=== PATIENT | male | born 1950 | race Caucasian/White ===

== ENCOUNTER 2016-03-18 11:19 | Observation (INO) | payer BC, OTHER ==
[2016-03-18 11:43] VITALS: BMI 33.6
[2016-03-18] MEDS ORDERED: SODIUM CHLORIDE 1,000 ML IV STA (12:30)
--- NOTE | 2016-03-18 12:51 | PDOC ---
History of Present Illness - General History Source: Patient - History of Present Illness Timing/Duration: other (this am) Associated Symptoms: reports: weakness. denies: chest pain, cough, diaphoresis , fever/chills, headaches, nausea/vomiting, seizure, shortness of breath <Blanche DormanNikko - Last Filed: 03/18/16 16:58> <Clarence Calixto - Last Filed: 03/19/16 09:41> - General Chief Complaint: Weakness Stated Complaint: GENERALIZED WEAKNESS Time Seen by Provider: 03/18/16 11:42 Past History - Past Medical History Anemia: No Asthma: Yes Cancer: No Cardiac Disorders: Yes (BLOCKED ARTERY) CVA: No COPD: No CHF: No Dementia: No Diabetes: Yes (NIDDM) GI Disorders: Yes (H/O COLON POLYP) Disorders: No HTN: Yes Hypercholesterolemia: Yes Liver Disease: No Psychiatric Problems: Yes (ANXIETY) Seizures: No Thyroid Disease: No - Surgical History Abdominal Surgery: No Appendectomy: No Cardiac Surgery: No (CARDIAC CATH.-[facility]) Cholecystectomy: No Lung Surgery: No Neurologic Surgery: No Orthopedic Surgery: Yes (LEFT ANKLE-SCRAPING OF TALUS BONE) - Psycho/Social/Smoking Cessation Hx Anxiety: Yes Suicidal Ideation: No Smoking History: Never smoked Have you smoked in the past 12 months: No Hx Alcohol Use: No Substance Use Type: None Hx Substance Use Treatment: No <Quincy Dorman - Last Filed: 03/18/16 16:58> <Clarence Calixto - Last Filed: 03/19/16 09:41> - Past Medical History Allergies/Adverse Reactions: Allergies Allergy/AdvReac Type Severity Reaction Status Date / Time iodine AdvReac Intermediate hives, Verified 03/18/16 11:41 itchy, swelling Home Medications: Ambulatory Orders Allopurinol [Zyloprim -] 300 mg PO DAILY 06/11/13 Aspirin Coated [Ecotrin -] 81 mg PO DAILY 06/11/13 Hydrochlorothiazide [Hctz -] 25 mg PO DAILY 06/11/13 Pregabalin [Lyrica] 200 mg PO BID 06/11/13 Ramipril [Altace] 10 mg PO DAILY 06/11/13 Albiglutide [Tanzeum] 30 mg SCJ WEEKLY 03/18/16 Aripiprazole [Abilify -] 2 mg PO DAILY 03/18/16 Celecoxib [Celebrex] 200 mg PO BID 03/18/16 Clonazepam 2 mg PO HS 03/18/16 Colesevelam HCl [Welchol (Nf)] 3 tab PO BID 03/18/16 Fenofibrate [Lofibra] 160 mg PO DAILY 03/18/16 Tamsulosin HCl 0.4 mg PO HS 03/18/16 Venlafaxine HCl ER [Effexor Xr -] 225 mg PO DAILY 03/18/16 Review of Systems - Review of Systems Constitutional: Yes: Weakness. No: Chills, Fever Respiratory: No: Cough, Shortness of Breath Cardiac (ROS): No: Chest Pain ABD/GI: No: Constipated, Diarrhea, Nausea, Vomiting Neurological: No: Headache, Dizziness <Quincy Dorman - Last Filed: 03/18/16 16:58> *Physical Exam - Vital Signs Last Vital Signs Temp Pulse Resp BP Pulse Ox 97.9 F 79 18 109/51 96 03/18/16 11:34 03/18/16 11:34 03/18/16 11:34 03/18/16 11:34 03/18/16 11:34 - Physical Exam General Appearance: Yes: Appropriately Dressed, Other (pt appears lethargic) HEENT: positive: Normal Voice Neck: positive: Supple Respiratory/Chest: positive: Lungs Clear, Normal Breath Sounds. negative: Respiratory Distress Cardiovascular: positive: Regular Rate, S1, S2 Gastrointestinal/Abdominal: positive: Soft. negative: Tender Extremity: positive: Normal Inspection Integumentary: positive: Dry, Warm Neurologic: positive: Fully Oriented, Normal Mood/Affect, Other (oriented x 3 and non-focal) <Quincy Dorman - Last Filed: 03/18/16 16:58> - Vital Signs Last Vital Signs Temp Pulse Resp BP Pulse Ox 97.7 F 65 20 114/54 96 03/19/16 05:57 03/19/16 05:57 03/19/16 05:57 03/19/16 05:57 03/19/16 05:00 <Clarence Calixto - Last Filed: 03/19/16 09:41> ED Treatment Course - LABORATORY CBC & Chemistry Diagram: 03/18/16 12:55 03/18/16 12:55 - RADIOLOGY Radiology Studies Ordered: Category Date Time Status HEAD CT WITHOUT CONTRAST [CT] Stat CT Scan 03/18/16 12:31 Ordered <Maricruz DormanCelestino - Last Filed: 03/18/16 16:58> - LABORATORY CBC & Chemistry Diagram: 03/18/16 12:55 03/19/16 06:00 - ADDITIONAL ORDERS Additional order review: 03/18/16 12:55 RBC 4.93 MCV 86.5 MCHC 34.3 RDW 14.5 MPV 8.3 Neutrophils % 70.2 Lymphocytes % 15.8 Monocytes % 9.0 Eosinophils % 4.5 Basophils % 0.5 - Medications Given in the ED: ED Medications Discontinued Medications Generic Name Dose Route Start Last Admin Trade Name Freq PRN Reason Stop Dose Admin Sodium Chloride 1,000 mls @ 1,000 mls/hr 03/18/16 12:30 03/18/16 12:34 Normal Saline - IV 03/18/16 13:29 1,000 mls/hr ASDIR STA Administration <Clarence Calxito - Last Filed: 03/19/16 09:41> Medical Decision Making - Medical Decision Making 03/18/16 12:45 65-year-old male, obesity, REM sleep disorder, anxiety on clonazepam, sent to ED by chiropractor for altered mental status this am. As per chiropractor contacted her to inform her that patient appeared "sluggish" and confused in office today. As per , suspect patients sxs are 2/2 clonazepam. States patient recently had clonazepam increased from 0.5 daily to 1 mg and is to take 2mg at night and 1mg in the days that he goes to work. States though patient is off today from work, pt took either 1 or 2 mg at 4 AM today and suspect meds is causing symptoms. Patient lethargic in ED but able to give hx and denies headache, dizziness, focal weakness, chest pain or shortness of breath. See exam AMS Possible 2/2 benzo, less likely CVA, cardiac, metabolic or infectious -ekg -CT head -labs including utox -possible OBs admission 03/18/16 12:52 03/18/16 16:53 Labs only remarkable for benzo on utox. Pt minimally improved but remains lethargic but protecting airway. Case d/w hospitalist and pt admitted <SyriacQuincy schuster - Last Filed: 03/18/16 16:58> - Medical Decision Making 03/19/16 09:41 The patient was seen and evaluated in conjunction with REJI Hernandez under my direct supervision, ancillary studies were reviewed. I agree with the plan as outlined by REJI Hernandez . <Clarence Calixto - Last Filed: 03/19/16 09:41> *DC/Admit/Observation/Transfer - Discharge Dispostion Admit: Yes <Quincy Dorman - Last Filed: 03/18/16 16:58> <Clarence Calixto - Last Filed: 03/19/16 09:41> Diagnosis at time of Disposition: Altered mental status Qualifiers: Altered mental status type: unspecified Qualified Code(s): R41.82 - Altered mental status, unspecified - Discharge Dispostion Condition at time of disposition: Stable - Referrals
[2016-03-18 13:04] LABS: BASOPHIL 0.5 % (0-2.0); EOSINOPHIL 4.5 % (0-4.5); MCH 29.6 pg (25.7-33.7); MCHC 34.3 g/dl (32.0-35.9); MEAN CELL VOLUME 86.5 fl (80-96); MEAN PLT VOLUME 8.3 fl (7.5-11.1); NEUTROPHILS 70.2 % (42.8-82.8); PLATELET COUNT 218 K/MM3 (134-434); RDW 14.5 % (11.9-15.9); WHITE BLOOD COUNT 7.4 K/mm3 (4.0-10.0)
[2016-03-18 13:41] LABS: ALBUMIN 3.6 g/dl (3.4-5.0); ANION GAP 10 (8-16); BILIRUBIN,TOTAL 0.2 mg/dL (0.2-1.0); CALCIUM 9.8 mg/dL (8.5-10.1); CO2 30 mmol/L (21-32); GLUCOSE,RANDOM 115 mg/dL (74-106); SGPT/ALT 34 U/L (12-78)
[2016-03-18 13:44] LABS: ALK PHOS 76 U/L (45-117); TOT PROT 6.4 g/dl (6.4-8.2); TROPONIN I < 0.02 ng/ml (0.00-0.05)
[2016-03-18 13:45] LABS: SGOT/AST 20 U/L (15-37)
[2016-03-18 15:03] LABS: URINE APPEARANCE CLEAR; URINE BILIRUBIN NEGATIVE (NEGATIVE); URINE BLOOD NEGATIVE (NEGATIVE); URINE COLOR LTYELLOW; URINE GLUCOSE (UA) NEGATIVE (NEGATIVE); URINE KETONE NEGATIVE (NEGATIVE); URINE LEUK ESTERASE NEGATIVE (NEGATIVE); URINE NITRITE NEGATIVE (NEGATIVE); URINE PROTEIN NEGATIVE (NEGATIVE); URINE UROBILINOGEN NEGATIVE E.U./dl (0.2-1.0)
[2016-03-18 15:32] LABS: URINE MARIJUANA THC NEGATIVE ng/ml (CUTOFF=50)
--- NOTE | 2016-03-18 16:15 | EKG ---
Test Reason : Blood Pressure : / mmHG Vent. Rate : 070 BPM Atrial Rate : 070 BPM P-R Int : 226 ms QRS Dur : 086 ms QT Int : 388 ms P-R-T Axes : 030 019 053 degrees QTc Int : 419 ms SINUS RHYTHM WITH 1ST DEGREE A-V BLOCK LOW VOLTAGE QRS NONSPECIFIC ST AND T WAVE ABNORMALITY ABNORMAL ECG WHEN COMPARED WITH ECG OF 15-APR-2008 16:11, [place] INTERVAL HAS INCREASED NONSPECIFIC T WAVE ABNORMALITY NOW EVIDENT IN ANTEROLATERAL LEADS Confirmed by LEE PALOMINO MD ([id number]) on 03/18/2016 4:15:18 PM Referred By: Confirmed By:LEE PALOMINO MD
--- NOTE | 2016-03-18 18:17 | PN ---
Teaching Attending Note Name of Resident: Laly Syed ATTENDING PHYSICIAN STATEMENT I saw and evaluated the patient. I reviewed the resident's note and discussed the case with the resident. I agree with the resident's findings and plan as documented. SUBJECTIVE: CC: AMS. story obtained form and patient . He has been feeling weak and tired , for 3 days . the only change in his meds was increasing his klonopin to 2 mg from one 3 days ago. ( previously it was 0.5 mg ). He was at his Chiropractor's office this am when he felt that he lost focus and was not able to text his , He was also stumbling , he denied any change in his vision, focal weakness, tingling or numbness . he has ELY o n and off and this am he had some ELY and took lexapro for that. HE is prescribed Lexapro by his neurologist for ELY . For the past 3 days he has been feeling not himself . He denied taking an extra Klonopin this am . reports episode of hypotension this AM at chiropractor ' s office She thinks he is much better now, speech is close to Normal , and he feels he is almost back to NL but tired He denies any fever , chills, LOC , fall, dysuria , diarrhea or ABd pain. OBJECTIVE: NAD , looks fatigued , awake , slightly dry MM . CV: RRR, NO MRG Lungs : CATB ext : trace edema on lower legs NEuro : EOMI, round equal pupils , reactive to light , no facial droop, tongue at mid line , uvula at mid line , nl facial sensation , strength 5/5 in upper and lower ext prox and distally .reflexes 2+ knee jerk and biceps b/l . nL nose to finger . Awake , AAx3 . ASSESSMENT AND PLAN: 65 y/o gentleman with h/o DM , REM sleep disorder , back pain due to herniated disks, insomnia, chronic ELY , who presented to ER from his Chiropractor's office with AMS. 1- AMS , probably due to benzos. , he admits to taking it each night at increased dose . His urine was positive for opioids which he denies taking and neg for Opioids!!!. Patient also has signs of volume depletions which might be contributing to the picture . He already imporved. I do not suspect a stroke or TIA in him. HIs neuro exam is completely NL. He also has no signs of infection . - will hold benzos and monitor mental status - will give him his SSRI to avoid withdrawal sx . - probably tomorrow night he should get low dose benzos , otherwise he will develop withdrawal sx . - start gentle IV hydration - CT scan with no etiology - hold HCTZ - will repeat urine tox as there might be a specimen error 2- h/o DM , will watch his BGM and place on SSI . 3- neuropathy : cont with lyrica 4- h/o CAD , per had cath twice with 30 % stenosis . No stents were indicated . cont ASA 5- ZEYAD: order CPAP at home setting . dispo : possible dc tomorrow if cont to improve .
[2016-03-18] MEDS ORDERED: SODIUM CHLORIDE 1,000 ML IV SCH (18:45)
--- NOTE | 2016-03-18 19:07 | HP ---
CHIEF COMPLAINT: Mental status change PCP: HISTORY OF PRESENT ILLNESS: The pt is a 65 year old male with a PMH of obesity, ZEYAD (on CPAP at home), anxiety, REM sleep disorder, HRT, HDL who presents to the hospital with mental status change. He states that for the past 3 days he feels sluggish, "like he was drunk". He noticed that it worsened yesterday. He went to his chirapractor today in AM who noticed that the pt is confused and called the ambulance. The pt states that 3 days ago his doctor increased Klonapin to 2 mg. The pt's states that she couldn't understand him over the phone yesterday in the evening and today he was not responding to her text messages. The pt denies dizziness, LOC, paresthesias, numbness, weakness, vision changes, chest pain, palpitations. He denies N/V, diarrhea, constipation, dysuria, urgency, frequency. ER course was notable for: (1)CT head (2)EKG (3)U tox PAST MEDICAL HISTORY: As above PAST SURGICAL HISTORY: Left meniscus repair, left ankle repair, deviated septum repair, tonsillectomy Social History: Smoking:No Alcohol:No Drugs:No, but stated that he was opiates dependant Family History: Father: LYMPHOMA, PROSTATE CANCER, COPD Vikas: breast cancer Allergies iodine Adverse Reaction (Intermediate, Verified 03/18/16 11:41) hives, itchy, swelling HOME MEDICATIONS: Medication Instructions Recorded Allopurinol [Zyloprim -] 300 mg PO DAILY 06/11/13 Alprazolam [Xanax] 0.25 mg PO PRN PRN 06/11/13 Aspirin Coated [Ecotrin -] 81 mg PO DAILY 06/11/13 Fluticasone Prop 0.05% Nasal 1 - 2 spray NS DAILY 06/11/13 [Flonase -] Glimepiride [Amaryl] 2 mg PO DAILY 06/11/13 Hydrochlorothiazide [Hctz -] 25 mg PO DAILY 06/11/13 Montelukast Na [Singulair -] 10 mg PO HS 06/11/13 Pregabalin [Lyrica] 200 mg PO DAILY 06/11/13 Ramipril [Altace] 10 mg PO DAILY 06/11/13 Sertraline HCl [Zoloft -] 150 mg PO DAILY 06/11/13 Albiglutide [Tanzeum] 30 mg SCJ WEEKLY 03/18/16 Aripiprazole [Abilify -] 2 mg PO DAILY 03/18/16 Celecoxib [Celebrex] 200 mg PO DAILY 03/18/16 Clonazepam 2 mg PO HS 03/18/16 Clonazepam [Klonopin -] 0.5 mg PO ASDIR 03/18/16 Colesevelam HCl [Welchol (Nf)] 3 tab PO BID 03/18/16 Cyclobenzaprine HCl [Flexeril -] 10 mg PO TID 03/18/16 Fenofibrate [Lofibra] 160 mg PO HS 03/18/16 Multivitamin [Poly-Vitamin] 1 each PO DAILY 03/18/16 Tamsulosin HCl 0.4 mg PO HS 03/18/16 Venlafaxine HCl ER [Effexor Xr -] 75 mg PO HS 03/18/16 REVIEW OF SYSTEMS CONSTITUTIONAL: Absent: fever, chills, diaphoresis, generalized weakness, malaise, loss of appetite, weight change HEENT: Absent: rhinorrhea, nasal congestion, throat pain, throat swelling, difficulty swallowing, mouth swelling, ear pain, eye pain, visual changes CARDIOVASCULAR: Absent: chest pain, syncope, palpitations, irregular heart rate, lightheadedness , peripheral edema RESPIRATORY: Absent: cough, shortness of breath, dyspnea with exertion, orthopnea, wheezing, stridor, hemoptysis GASTROINTESTINAL: Absent: abdominal pain, abdominal distension, nausea, vomiting, diarrhea, constipation, melena, hematochezia GENITOURINARY: Absent: dysuria, frequency, urgency, hesitancy, hematuria, flank pain, genital pain MUSCULOSKELETAL: lower back pain Absent: myalgia, joint swelling, neck pain SKIN: Absent: rash, itching, pallor HEMATOLOGIC/IMMUNOLOGIC: Absent: easy bleeding, easy bruising, lymphadenopathy, frequent infections ENDOCRINE: Absent: unexplained weight gain, unexplained weight loss, heat intolerance, cold intolerance NEUROLOGIC: Absent: headache, focal weakness or paresthesias, dizziness, unsteady gait, seizure, mental status changes, bladder or bowel incontinence PSYCHIATRIC: Absent: anxiety, depression, suicidal or homicidal ideation, hallucinations. PHYSICAL EXAMINATION Vital Signs - 24 hr 03/18/16 03/18/16 17:43 18:07 Temperature 97.8 F Pulse Rate [ 76 Left Radial] Respiratory 16 16 Rate Blood Pressure 113/72 [Right Arm] O2 Sat by Pulse 98 98 Oximetry (%) GENERAL: Awake, alert, and fully oriented, in no acute distress. HEAD: Normal with no signs of trauma. EYES: Pupils equal, round and reactive to light, extraocular movements intact, sclera anicteric, conjunctiva clear. No lid lag. EARS, NOSE, THROAT: Ears normal, nares patent, oropharynx clear without exudates. Moist mucous membranes. NECK: Normal range of motion, supple without lymphadenopathy, JVD, or masses. LUNGS: Breath sounds equal, clear to auscultation bilaterally. No wheezes, and no crackles. No accessory muscle use. HEART: Regular rate and rhythm, normal S1 and S2 without murmur, rub or gallop. ABDOMEN: Obese, soft, nontender, not distended, normoactive bowel sounds, no guarding, no rebound, no masses. No hepatomegaly or splenomegaly. MUSCULOSKELETAL: Normal range of motion at all joints. No bony deformities or tenderness. No CVA tenderness. UPPER EXTREMITIES: 2+ pulses, warm, well-perfused. No cyanosis. No clubbing. Cap refill <2 seconds. No peripheral edema. LOWER EXTREMITIES: 2+ pulses, warm, well-perfused. No calf tenderness. No peripheral edema. NEUROLOGICAL: Cranial nerves II-XII intact. Normal speech. Normal gait. Romberg negative, Sensation intact. Babinski negative B/L. PSYCHIATRIC: Cooperative. Good eye contact. Appropriate mood and affect. SKIN: Warm, dry, normal turgor, no rashes or lesions noted. ASSESSMENT/PLAN: The pt is a 65 year old male with a PMH of obesity, ZEYAD (on CPAP at home), anxiety, RWEM sleep disorder, HRT, HDL who presents to the hospital with mental status change. He states that for the past 3 days he feels sluggish. He states that 3 days ago his doctor increased Klonapin to 2 mg. He is admitted for mental status change. Mental status change: -probably due to medications, benzodiazepines, he was recently increasing his dose and also taking in AM, his U Tox is positive for opioids and barbiturates, will recheck his U tox. if mistake happened. We are r/o cardiac and neuro. he doesn't have any neuro or cardiac complaints. Labs are nl, EKG nl, troponins neg. Ct head nl. -f/u next troponin and EKG -hold BZ today, start tomorrow -continue SSRI -IVF at rate 75 ml/hr -hold HCTZ Pre diabetic; -will watch his BGM -ISS Neuropathy: -continue Lyrica CAD: -continue home meds, had arteriography done in the past ZEYAD; -CPAP at night F/E/N; NS/No changes/Low sodium disposition; placed on observation Medications reconciled. Problem List - Problem (1) Altered mental status Code(s): R41.82 - ALTERED MENTAL STATUS, UNSPECIFIED Qualifiers: Altered mental status type: unspecified Qualified Code(s): R41.82 - Altered mental status, unspecified (2) Lower back pain Code(s): M54.5 - LOW BACK PAIN Visit type - Emergency Visit Emergency Visit: Yes ED Registration Date: 03/18/16 Care time: The patient presented to the Emergency Department on the above date and was hospitalized for further evaluation of their emergent condition. - New Patient This patient is new to me today: Yes Date on this admission: 03/19/16 - Critical Care Critical Care patient: No
[2016-03-18] MEDS ORDERED: PREGABALIN 75 MG CAPSULE ONE (21:31)
[2016-03-18] MEDS ORDERED: PREGABALIN 50 MG CAPSULE ONE (21:31)
[2016-03-18] MEDS ORDERED: PREGABALIN 200 MG PO SCH (22:00)
[2016-03-18] MEDS ORDERED: PREGABALIN 100 MG CAPSULE PO SCH (22:00)
[2016-03-18] MEDS: CELECOXIB 200 MG CAPSULE PO SCH (23:07)
[2016-03-18] MEDS: HEPARIN NA (PORCINE) 5,000 UNITS/ML 1ML VIAL SQ SCH (23:08)
[2016-03-18] MEDS: PREGABALIN 150 MG, PREGABALIN 50 MG PO SCH (23:08)
[2016-03-19] MEDS: HEPARIN NA (PORCINE) 5,000 UNITS/ML 1ML VIAL SQ SCH (06:46)
[2016-03-19 07:54] LABS: CALCIUM 8.6 mg/dL (8.5-10.1)
[2016-03-19] MEDS ORDERED: ASPIRIN COATED 81 MG TABLET.EC PO SCH (10:00)
[2016-03-19] MEDS ORDERED: ALLOPURINOL 300 MG TABLET (FP) PO SCH (10:00)
[2016-03-19] MEDS ORDERED: ARIPiprazole 2 MG TABLET PO SCH (10:00)
[2016-03-19] MEDS ORDERED: RAMIPRIL 5 MG CAPSULE (FP) PO SCH (10:00)
[2016-03-19] MEDS ORDERED: VENLAFAXINE HCL 75 MG E.R. CAPSULES (FP) PO SCH (10:00)
[2016-03-19] MEDS ORDERED: PREGABALIN 50 MG CAPSULE ONE (10:58)
[2016-03-19] MEDS: PREGABALIN 150 MG, PREGABALIN 50 MG PO SCH (11:04)
[2016-03-19] MEDS: CELECOXIB 200 MG CAPSULE PO SCH (11:05)
--- NOTE | 2016-03-19 14:32 | EKG ---
Test Reason : Blood Pressure : / mmHG Vent. Rate : 071 BPM Atrial Rate : 071 BPM P-R Int : 172 ms QRS Dur : 088 ms QT Int : 348 ms P-R-T Axes : 044 033 043 degrees QTc Int : 378 ms NORMAL SINUS RHYTHM LOW VOLTAGE QRS NONSPECIFIC T WAVE ABNORMALITY ABNORMAL ECG WHEN COMPARED WITH ECG OF 18-MAR-2016 12:08, [place] INTERVAL HAS DECREASED INVERTED T WAVES HAVE REPLACED NONSPECIFIC T WAVE ABNORMALITY IN ANTERIOR LEADS Confirmed by GEORGETTE MORLEY, LEE ([id number]) on 03/19/2016 2:32:35 PM Referred By: LUIS PATEL Confirmed By:LEE PALOMINO MD
[2016-03-19 15:55] VITALS: BP 135/83; PULSE 83; TEMP 98
--- NOTE | 2016-03-19 16:39 | DS ---
Physical Examination Vital Signs: Vital Signs Temperature 98 F 03/19/16 10:00 Pulse Rate 83 03/19/16 10:00 Respiratory Rate 20 03/19/16 10:00 Blood Pressure 135/83 03/19/16 10:00 O2 Sat by Pulse Oximetry (%) 96 03/19/16 10:00 Findings/Remarks: this am she has no sx , has no CP or palpitations , or fever or chills. she denies any SOB or abd pain . feels back to his base line . HAs been ambulating of floor with no problem Constitutional: Yes: Well Nourished, No Distress, Calm Eyes: Yes: Conjunctiva Clear, EOM Intact, PERRL. No: Ptosis HENT: Yes: Atraumatic, Normocephalic Neck: Yes: Supple Cardiovascular: Yes: Regular Rate and Rhythm, S1, S2. No: Murmur, Rub Respiratory: Yes: CTA Bilaterally Extremities: No: Cold, Cool, Cyanosis, Erythema Edema: No Neurological: Yes: Alert, Oriented, Cran Nerves II-XII Intact, Other (DTR: 2+ knee jerk and biceps b/l). No: Dysarthria, Facial Droop, Lethargy ...Motor Strength: WNL, LUE (5/5 proximally and distally), LLE (5/5 proximally and distally), RUE (5/5 proximally and distally), RLE (5/5 proximally and distally) Labs: CBC, BMP 03/19/16 06:00 Discharge Summary Reason For Visit: AMS Current Active Problems Altered mental status (Acute) Hospital Course: Dc diagnoses : 1- AMS Hospital course : 65 y/o gentleman with h/o DM , REM sleep disorder , back pain due to herniated disks, insomnia, chronic ELY , who presented to ER from his Chiropractor's office with AMS. Reportedly he had hypotension there too He had been feeling weak and tired , for 3 days prior to presentation . the only change in his meds was increasing his klonopin to 2 mg from 1 mg 3 days prior Upon presentation to the ER, his SBP was 109 ( then improved ) . He was lethargic but araousable. He had a CT scan of head which showed no abnormality . He had no focal neurological deficits. by the time he was evaluated by me on admission ( yesterday ) , he already significantly improved , and his speech improved . His AMS was thought to be probably due to increasd dose of klonopin , in addition he showed signs of volume depletion and that probably contributed to his hypotension in the office. Stroke or TIA were not suspected in him . His urine Tox screen was Neg for Benzos and positive for Opioids, which made me question if that was the wrong sample. He was given IVF , and monitored off benzos last night and his mental status , BP , and speech improved and today is back to NL. HE could walk to me with no support today his neuro exam is still completely NL . HE was asked to resume his home meds and to decrease his klonopin dose to 1 mg HS instead of 2 to avoid sidfe effects( it wasnot stopped to avoid withdrawal sx ) He was advised to follow withhis neurologist Dr. Murphy in few days for further eval, and his PCP Dr. Núñez as well. Dispo : HOme condition improved F/U PCP and neurology . Condition: Improved - Instructions Diet, Activity, Other Instructions: please follow with Dr. Clement, your neurologist in 1 week . follow with your PCP in 1 week take only 1 mg of klonopin instead of 2 mg q HS . keep hydrated. if you have any light headedness or dizziness or numbness or tingling , please call 911 . Take only 5 mg of Ramipril instead of 10 mg until you see your doctor for dose adjustment , check your BP daily and report to your doctor Referrals: Patrica Núñez [Primary Care Provider] - 1 Week Disposition: HOME - Home Medications Comprehensive Discharge Medication List: Ambulatory Orders Allopurinol [Zyloprim -] 300 mg PO DAILY 06/11/13 Aspirin Coated [Ecotrin -] 81 mg PO DAILY 06/11/13 Hydrochlorothiazide [Hctz -] 25 mg PO DAILY 06/11/13 Pregabalin [Lyrica] 200 mg PO BID 06/11/13 Albiglutide [Tanzeum] 30 mg SCJ WEEKLY 03/18/16 Aripiprazole [Abilify -] 2 mg PO DAILY 03/18/16 Celecoxib [Celebrex] 200 mg PO BID 03/18/16 Colesevelam HCl [Welchol (Nf)] 3 tab PO BID 03/18/16 Fenofibrate [Lofibra] 160 mg PO DAILY 03/18/16 Tamsulosin HCl 0.4 mg PO HS 03/18/16 Venlafaxine HCl ER [Effexor Xr -] 225 mg PO DAILY 03/18/16 Clonazepam 1 mg PO HS #0 03/19/16 Ramipril [Altace] 5 mg PO DAILY #0 03/19/16 This patient is new to me today: No Emergency Visit: Yes ED Registration Date: 03/18/16 Care time: The patient presented to the Emergency Department on the above date and was hospitalized for further evaluation of their emergent condition. Critical Care patient: No - Discharge Referral Referred to [facility] Med P.C.: No
== END 2016-03-19 14:25 | disposition home or self-care (01) ==
LOC: JER 11:19 → JERBED 17:14 → J7W 19:01
PROVIDERS: ADMIT Internal Medicine; ATTEND Internal Medicine
PROC: 5A09357 Assistance with Respiratory Ventilation, Less than 24 Consecutive Hours, Continuous Positive Airway Pressure (ICD-10-PCS; principal; 2016-03-18)
DX: R41.82 Altered mental status, unspecified (principal); I25.10 Atherosclerotic heart disease of native coronary artery without angina pectoris; G47.33 Obstructive sleep apnea (adult) (pediatric); G62.9 Polyneuropathy, unspecified; E11.9 Type 2 diabetes mellitus without complications; M54.5 Low back pain; E66.9 Obesity, unspecified; Z68.34 Body mass index [BMI] 34.0-34.9, adult; E78.5 Hyperlipidemia, unspecified
CPT/HCPCS: 36415; 70450-TC; 80048; 80053; 80307; 81003; 82550; 84484; 85025; 93005; 93010; 94660; 99284-25; G0378; J1644

== ENCOUNTER 2020-04-06 11:56 | Emergency (ER) | payer BC, OTHER | END 2020-04-06 12:04 | disposition home or self-care (01) | LOC: JVIRT 11:56 | DX: U07.1 COVID-19 (principal) | CPT/HCPCS: C9803; G2012-GT; U0003 ==